=== PATIENT | female | born 1995 | race Hispanic/Latino ===

== ENCOUNTER 2021-10-14 00:06 | Inpatient (IN) | payer OTHER ==
[2021-10-14] MEDS ORDERED: CARBOPROST TROMETHAMINE 250 MCG/1 ML INJ IM PRN (00:49)
[2021-10-14] MEDS ORDERED: LIDOCAINE (2%) 20 MG/1 ML VIAL 20 ML MDV INFILTRATI ONE (00:49)
[2021-10-14] MEDS ORDERED: ONDANSETRON 4 MG/2 ML INJ IV PRN ×2 (00:49→14:20)
[2021-10-14] MEDS ORDERED: MINERAL OIL 30 ML ORAL LIQD PO PRN (00:49)
[2021-10-14] MEDS ORDERED: LOPERAMIDE 2 MG CAP PO PRN (00:49)
[2021-10-14] MEDS ORDERED: TERBUTALINE 1 MG/1 ML INJ SUB-Q PRN (00:49)
[2021-10-14] MEDS ORDERED: miSOPROStol 200 MCG TAB PR PRN (00:49)
[2021-10-14] MEDS ORDERED: ACETAMINOPHEN 325 MG TAB PO PRN ×2 (00:49→14:20)
[2021-10-14] MEDS ORDERED: METHYLERGONOVINE MALEATE 0.2 MG/ML VIAL IM PRN (00:49)
[2021-10-14] MEDS ORDERED: BUTORPHANOL 2 MG/1 ML INJ IV PRN (00:49)
[2021-10-14] MEDS ORDERED: ePHEDrine SULFATE 50 MG/1 ML INJ IV PRN ×2 (00:49→02:07)
[2021-10-14] MEDS ORDERED: fentaNYL 100 MCG/2 ML INJ IV PRN (00:49)
[2021-10-14] MEDS ORDERED: OXYTOCIN 10 UNIT/1 ML INJ IM PRN (00:49)
--- NOTE | 2021-10-14 00:58 | History and Physical Report ---
History of Present Illness Date of examination: 10/14/21 Date of admission: 10/14/2021 Chief complaint: contractions History of present illness: Patient is a at 40w0d presenting with contractions. Notes they began at 4 AM yesterday. Currently every minute. Presented to triage yesterday with latent labor, but discharged home as she did not want to be placed on pitocin. +FM. Notes bloody show before arrival. Denies leakage of fluid. Past History Past Medical History: other (Crohn's Disease) Past Surgical History: no surgical history Family/Genetic History: cancer Social history: no significant social history - Obstetrical History Expected Date of Delivery: 10/14/21 Actual Gestation: 40 Week(s) 0 Day(s) : 3 Para: 2 Hx # Term Pregnancies: 2 Number of Pregnancies: 0 Spontaneous Abortions: 0 Induced : 0 Number of Living Children: 2 Medications and Allergies Allergies Allergy/AdvReac Type Severity Reaction Status Date / Time No Known Allergies Allergy Verified 12/02/15 01:19 Home Medications Medication Instructions Recorded Confirmed Last Taken Type Ibuprofen [Motrin 800 MG tab] 800 mg PO Q8HR PRN #30 tablet 12/02/15 Unknown Rx Lidocain2.5%/Prilocai2.5% [Emla] 5 gm TP ONCE PRN #1 tube 12/02/15 Unknown Rx Pnv,Calcium 72/Iron/Folic Acid 1 tab PO DAILY 12/02/15 12/02/15 Unknown History [Pnv Plus Multivit Tab] Review of Systems Genitourinary: vaginal bleeding, contractions - Vital Signs Vital signs: Vital Signs Temp 97.9 F 10/14/21 00:23 Temp Pulse Resp BP Pulse Ox 97.9 F 90 124/84 99 10/14/21 00:23 10/14/21 00:48 10/14/21 00:30 10/14/21 00:48 - Physical Exam Abdomen: Positive: normal appearance, soft, normal bowel sounds. Negative: distention, tenderness - Obstetrical Cervical Dilatation: 6.5 Cervical Effacement Percentage: 90 station: -2 Uterine Contraction Frequency (min): q 1 min Uterine Contraction Pattern: Regular Results Result Diagrams: 10/14/21 00:46 All other labs normal. Assessment and Plan Patient in active labor, admit to L&D GBS negative Desires epidural Type and screen, CBCB, CoVID testing Anticipate - Patient Problems (1) Active labor at term Current Visit: Yes Status: Acute (2) 40 weeks gestation of Current Visit: No Status: Acute
[2021-10-14 01:00] LABS: Hematocrit 39.7 % (30.3-42.9); Hemoglobin 14.1 gm/dl (10.1-14.3); Mean Corpuscular HGB Conc 35 % (30-34); Mean Corpuscular Volume 85 fl (79-97); Platelet Count 186 K/mm3 (140-440); Red Blood Count 4.65 M/mm3 (3.65-5.03); Red Cell Distribution Width 14.9 % (13.2-15.2)
[2021-10-14] MEDS ORDERED: OXYTOCIN DRIP 30 UNITS/500 ML BAG IV SCH ×3 (01:00→14:20)
[2021-10-14] MEDS ORDERED: LACTATED RINGERS 1,000 ML IV SCH (01:00)
--- NOTE | 2021-10-14 02:06 | Anesthesia Consultation ---
Anesthesia Consult and Med Hx Date of service: 10/14/21 - Airway Anesthetic Teeth Evaluation: Good ROM Head & Neck: Adequate Mental/Hyoid Distance: Adequate Mallampati Class: Class II Intubation Access Assessment: Good - Pulmonary Exam CTA: Yes - Cardiac Exam Cardiac Exam: RRR - Pre-Operative Health Status ASA Pre-Surgery Classification: ASA2 Proposed Anesthetic Plan: Epidural - Pulmonary Hx Asthma: No COPD: No Hx Pneumonia: No - Cardiovascular System Hx Hypertension: No - Central Nervous System Hx Seizures: No Hx Psychiatric Problems: No - Endocrine Hx Renal Disease: No Hx End Stage Renal Disease: No Hx Hypothyroidism: No Hx Hyperthyroidism: No - Hematic Hx Anemia: No Hx Sickle Cell Disease: No - Other Systems Hx Alcohol Use: No
[2021-10-14] MEDS ORDERED: NALOXONE 0.4 MG/1 ML INJ IV PRN (02:07)
--- NOTE | 2021-10-14 02:08 | Progress Note ---
Labor Epidural - Labor Epidural Start Time: 01:53 Stop Time: :57 Performed by:: MEGHANN PIERRE Procedure: Patient is requesting epidural for labor and pain. H&P, labs were reviewed. Patient IDed, all questions and concerns were answered, and consent was signed. Timeout was performed at bedside. Patient in sitting position. Sterile prep and drape was performed. 3ml of 1% lidocaine skin wheal at L[3]- L [4]. 17- gauge Tuohy epidural needle was advanced to loss of resistance with air technique cm. Negative CSF negative blood. Epidural catheter advanced to [15] centimeters. [negative] Aspiration [negative] test dose. Sterile dressing applied. Patient tolerated procedure.
[2021-10-14] MEDS: fentaNYL-BUPIV 2 MCG/ML-0.125% 200 MCG/100 ML BAG EPIDURAL SCH ×2 (02:33→10:44)
--- NOTE | 2021-10-14 07:38 | Progress Note ---
Assessment and Plan A: 25 y.o. @ 40 wks, active labor. - Patient Problems (1) Active labor at term Current Visit: Yes Status: Acute Plan to address problem: Will start Pitocin per protocol. Continue to monitor status through EFM. Anticipate . Subjective - Subjective Date of service: 10/14/21 Principal diagnosis: IUP @ 40 wks, active labor Patient reports: movement normal Objective - Vital Signs Vital Signs: Vital Signs - 12hr 10/14/21 10/14/21 10/14/21 00:23 00:28 00:30 Temperature 97.9 F Pulse Rate 98 H Blood Pressure 124/84 O2 Sat by Pulse 89 Oximetry O2 Sat by Pulse Oximetry [ Throughout] 10/14/21 10/14/21 10/14/21 00:33 00:38 00:43 Temperature Pulse Rate 95 H 82 94 H Blood Pressure O2 Sat by Pulse 99 99 100 Oximetry O2 Sat by Pulse Oximetry [ Throughout] 10/14/21 10/14/21 10/14/21 00:48 01:00 01:34 Temperature Pulse Rate 90 81 Blood Pressure O2 Sat by Pulse 99 98 Oximetry O2 Sat by Pulse 99 Oximetry [ Throughout] 10/14/21 10/14/21 10/14/21 01:35 01:39 01:40 Temperature Pulse Rate 66 81 62 Blood Pressure O2 Sat by Pulse 94 98 86 Oximetry O2 Sat by Pulse Oximetry [ Throughout] 10/14/21 10/14/21 10/14/21 01:44 01:48 01:49 Temperature Pulse Rate 94 H 80 107 H Blood Pressure O2 Sat by Pulse 99 89 98 Oximetry O2 Sat by Pulse Oximetry [ Throughout] 10/14/21 10/14/21 10/14/21 01:54 01:59 02:01 Temperature Pulse Rate 93 H 99 H 76 Blood Pressure 134/78 O2 Sat by Pulse 99 98 Oximetry O2 Sat by Pulse Oximetry [ Throughout] 10/14/21 10/14/21 10/14/21 02:04 02:09 02:12 Temperature Pulse Rate 82 87 92 H Blood Pressure 112/59 O2 Sat by Pulse 99 98 Oximetry O2 Sat by Pulse Oximetry [ Throughout] 10/14/21 10/14/21 10/14/21 02:14 02:19 02:22 Temperature Pulse Rate 101 H 82 86 Blood Pressure 113/68 O2 Sat by Pulse 98 97 Oximetry O2 Sat by Pulse Oximetry [ Throughout] 10/14/21 10/14/21 10/14/21 02:24 02:29 02:31 Temperature Pulse Rate 95 H 96 H 93 H Blood Pressure 107/66 O2 Sat by Pulse 98 98 Oximetry O2 Sat by Pulse Oximetry [ Throughout] 10/14/21 10/14/21 10/14/21 02:34 02:39 02:44 Temperature Pulse Rate 80 90 94 H Blood Pressure O2 Sat by Pulse 97 98 98 Oximetry O2 Sat by Pulse Oximetry [ Throughout] 10/14/21 10/14/21 10/14/21 02:49 02:52 02:54 Temperature Pulse Rate 85 81 82 Blood Pressure 103/65 O2 Sat by Pulse 98 97 Oximetry O2 Sat by Pulse Oximetry [ Throughout] 10/14/21 10/14/21 10/14/21 02:59 03:04 03:09 Temperature Pulse Rate 89 90 88 Blood Pressure O2 Sat by Pulse 98 98 98 Oximetry O2 Sat by Pulse Oximetry [ Throughout] 10/14/21 10/14/21 10/14/21 03:13 03:14 03:19 Temperature Pulse Rate 98 H 94 H 85 Blood Pressure 103/66 O2 Sat by Pulse 98 98 Oximetry O2 Sat by Pulse Oximetry [ Throughout] 10/14/21 10/14/21 10/14/21 03:24 03:29 03:33 Temperature Pulse Rate 82 83 93 H Blood Pressure 110/59 O2 Sat by Pulse 98 98 Oximetry O2 Sat by Pulse Oximetry [ Throughout] 10/14/21 10/14/21 10/14/21 03:34 03:39 03:44 Temperature Pulse Rate 102 H 90 88 Blood Pressure O2 Sat by Pulse 98 98 98 Oximetry O2 Sat by Pulse Oximetry [ Throughout] 10/14/21 10/14/21 10/14/21 03:49 03:53 03:54 Temperature Pulse Rate 86 80 81 Blood Pressure 100/57 O2 Sat by Pulse 97 98 Oximetry O2 Sat by Pulse Oximetry [ Throughout] 10/14/21 10/14/21 10/14/21 03:59 04:04 04:09 Temperature Pulse Rate 74 75 73 Blood Pressure O2 Sat by Pulse 98 97 98 Oximetry O2 Sat by Pulse Oximetry [ Throughout] 10/14/21 10/14/21 10/14/21 04:14 04:19 04:24 Temperature Pulse Rate 93 H 89 86 Blood Pressure 102/54 O2 Sat by Pulse 98 97 98 Oximetry O2 Sat by Pulse Oximetry [ Throughout] 10/14/21 10/14/21 10/14/21 04:29 04:34 04:39 Temperature Pulse Rate 82 90 84 Blood Pressure 100/63 O2 Sat by Pulse 97 97 97 Oximetry O2 Sat by Pulse Oximetry [ Throughout] 10/14/21 10/14/21 10/14/21 04:44 04:49 04:54 Temperature Pulse Rate 79 85 87 Blood Pressure O2 Sat by Pulse 98 97 97 Oximetry O2 Sat by Pulse Oximetry [ Throughout] 10/14/21 10/14/21 10/14/21 04:59 05:04 05:09 Temperature Pulse Rate 76 82 79 Blood Pressure O2 Sat by Pulse 98 98 99 Oximetry O2 Sat by Pulse Oximetry [ Throughout] 10/14/21 10/14/21 10/14/21 05:13 05:14 05:19 Temperature Pulse Rate 88 76 88 Blood Pressure 109/59 O2 Sat by Pulse 99 99 Oximetry O2 Sat by Pulse Oximetry [ Throughout] 10/14/21 10/14/21 10/14/21 05:24 05:29 05:34 Temperature Pulse Rate 84 77 66 Blood Pressure O2 Sat by Pulse 99 99 99 Oximetry O2 Sat by Pulse Oximetry [ Throughout] 10/14/21 10/14/21 10/14/21 05:35 05:39 05:44 Temperature Pulse Rate 75 77 83 Blood Pressure 112/65 O2 Sat by Pulse 99 98 Oximetry O2 Sat by Pulse Oximetry [ Throughout] 10/14/21 10/14/21 10/14/21 05:49 05:54 05:59 Temperature Pulse Rate 78 73 78 Blood Pressure O2 Sat by Pulse 99 100 100 Oximetry O2 Sat by Pulse Oximetry [ Throughout] 10/14/21 10/14/21 10/14/21 06:04 06:09 06:13 Temperature Pulse Rate 84 89 90 Blood Pressure 119/71 O2 Sat by Pulse 100 95 Oximetry O2 Sat by Pulse Oximetry [ Throughout] 10/14/21 10/14/21 10/14/21 06:14 06:19 06:24 Temperature Pulse Rate 77 80 92 H Blood Pressure O2 Sat by Pulse 100 100 100 Oximetry O2 Sat by Pulse Oximetry [ Throughout] 10/14/21 10/14/21 10/14/21 06:29 06:34 06:39 Temperature 97.9 F Pulse Rate 97 H 78 79 Blood Pressure O2 Sat by Pulse 100 100 100 Oximetry O2 Sat by Pulse Oximetry [ Throughout] 10/14/21 10/14/21 10/14/21 06:44 06:49 06:53 Temperature Pulse Rate 91 H 83 88 Blood Pressure 116/73 O2 Sat by Pulse 98 100 Oximetry O2 Sat by Pulse Oximetry [ Throughout] 10/14/21 10/14/21 10/14/21 06:54 06:59 07:04 Temperature Pulse Rate 74 91 H 83 Blood Pressure O2 Sat by Pulse 98 90 100 Oximetry O2 Sat by Pulse Oximetry [ Throughout] 10/14/21 10/14/21 10/14/21 07:09 07:14 07:19 Temperature Pulse Rate 81 89 87 Blood Pressure 103/68 O2 Sat by Pulse 100 99 100 Oximetry O2 Sat by Pulse Oximetry [ Throughout] 10/14/21 10/14/21 10/14/21 07:24 07:29 07:34 Temperature Pulse Rate 84 77 84 Blood Pressure 123/79 O2 Sat by Pulse 100 99 98 Oximetry O2 Sat by Pulse Oximetry [ Throughout] - Exam Narrative Exam: AROM clear fluid. Cardiovascular: Regular rate Lungs: Normal air movement Abdomen: Present: normal appearance, soft Vulva: both: normal Uterus: Present: normal FHR: category 1 Uterine Contraction Monitor Mode: External Cervical Dilatation: 8 Cervical Effacement Percentage: 90 station: -1 Uterine Contraction Pattern: Regular Uterine Tone Measurement Phase: Resting Uterine Contraction Intensity: Moderate Extremities: normal - Labs Labs: Abnormal Labs 10/14/21 00:46 WBC 15.0 H MCHC 35 H Laboratory Results - last 24 hr 10/14/21 10/14/21 10/14/21 00:46 00:46 00:46 WBC 15.0 H RBC 4.65 Hgb 14.1 Hct 39.7 MCV 85 MCH 30 MCHC 35 H RDW 14.9 Plt Count 186 Syphilis IgG/IgM Ab Nonreactive Blood Type O POSITIVE Antibody Screen Negative
--- NOTE | 2021-10-14 09:23 | Event Note ---
Date: 10/14/21 Pt feeling more pressure. Cervical exam 100/0. Category 1 EFM tracing. RN taking care of patient aware. Anticipate .
--- NOTE | 2021-10-14 11:43 | Procedure Note ---
OB Delivery Note - Delivery Date of Delivery: 10/14/21 Estimated blood loss: 200cc - Vaginal Delivery presentation: vertex Delivery position: OA Intrapartum events: none Delivery induction: none Delivery augmentation: rupture of membranes, pitocin Delivery monitor: external FHT, external uterine Route of delivery: Delivery placenta: spontaneous Delivery cord: 3 umbilical vessels Episiotomy: none Delivery laceration: none Anesthesia: epidural Delivery comments: of viable female infant. 1500ml of amniotic fluid noted after delivery of infant. to mother's abdomen for skin to skin. Cord cut and clamped after cessation of pulse. Infant handed to NGUYEN RN for evaluation. Spontaneous delivery of placenta, intact, complete, 3 vessels noted. Perineum and vaginal inspected, no lacerations noted. Blood loss: 200ml. Apgars 8,9. Infant weight 9-5. Instruments and sponges counted with RN X2 and correct X2. Infant and mother left in stable condition in the care of the RN. - Infant A at 1 minute: 8 at 5 minutes: 9 Gender: Female (9-5)
[2021-10-14] MEDS ORDERED: BENZOCAINE/MENTHOL 20/0.5% TOP SPRAY 56 GM TP PRN (14:20)
[2021-10-14] MEDS ORDERED: WITCH HAZEL/ GLYCERIN PAD TP PRN (14:20)
[2021-10-14] MEDS ORDERED: miSOPROStol 100 MCG TAB PR PRN (14:20)
[2021-10-14] MEDS ORDERED: PROMETHAZINE 25 MG TAB PO PRN (14:20)
[2021-10-14] MEDS ORDERED: diphenhydrAMINE 25 MG CAP PO PRN (14:20)
[2021-10-14] MEDS ORDERED: PROMETHAZINE 25 MG RECT SUPP PR PRN (14:20)
[2021-10-14] MEDS ORDERED: LANOLIN/ZINC/DIMETHICONE (LANSINOH) 7 GM TP PRN ×2 (14:20)
[2021-10-14] MEDS ORDERED: MAGNESIUM HYDROXIDE (MOM) ORAL LIQD UDC PO PRN (14:20)
[2021-10-14] MEDS ORDERED: oxyCODONE /ACETAMINOPHEN 5-325MG TAB PO PRN (14:20)
[2021-10-14] MEDS: IBUPROFEN 800 MG TAB PO SCH ×2 (18:15→20:20)
[2021-10-14] MEDS: DOCUSATE SODIUM 100 MG CAP PO SCH (22:00)
[2021-10-15] MEDS: IBUPROFEN 800 MG TAB PO SCH ×2 (02:20→10:12)
--- NOTE | 2021-10-15 03:59 | Post Anesthesia Evaluation ---
- Post Anesthesia Evaluation Patient Participated: No Airway Patent: Yes Stable Respiratory Function: Yes Nausea/Vomiting: No Temp > 96.8F: Yes Pain Manageable: Yes Adequeate Hydration: Yes Anesthesia Complications: No Block Receding Appropriately: Yes Patient on Ventilator: No
[2021-10-15 05:17] LABS: Hematocrit 33.4 % (30.3-42.9); Hemoglobin 11.5 gm/dl (10.1-14.3)
--- NOTE | 2021-10-15 07:45 | Discharge Summary ---
Providers - Providers Date of Admission: 10/14/21 00:49 Date of discharge: 10/15/21 (desires d/c home) Attending physician: DINH BAEZ MD 10/14/21 14:20 Consult to Filler Blender [CONS] Routine Reason For Exam: assistance with , SNS Primary care physician: DINH BAEZ MD Hospitalization Reason for admission: Delivery Condition: Good Pertinent studies: post delivery H&H 11.5/33.4 Procedures: Hospital course: uncomplicated and course Disposition: 01 HOME / SELF CARE / HOMELESS Final Discharge Diagnosis (Prints w/discharge instructions): vaginal Time spent for discharge: 15 - Discharge Diagnoses (1) Vaginal delivery Status: Acute Comment: normal delivery done Core Measure Documentation - Palliative Care Palliative Care/ Comfort Measures: Not Applicable - Core Measures Any of the following diagnoses?: none Exam - Constitutional Vitals: Temp Pulse Resp BP Pulse Ox 97.8 F 88 18 115/71 98 10/15/21 00:22 10/15/21 00:22 10/15/21 02:20 10/15/21 00:22 10/15/21 00:22 General appearance: Present: no acute distress, well-nourished - EENT Eyes: Present: PERRL ENT: hearing intact, clear oral mucosa - Neck Neck: Present: supple, normal ROM - Respiratory Respiratory effort: normal Respiratory: bilateral: CTA - Cardiovascular Rhythm: regular Heart Sounds: Absent: rub, click - Extremities Extremities: No edema Peripheral Pulses: within normal limits - Abdominal General gastrointestinal: Present: soft, non-tender, non-distended, normal bowel sounds Female genitourinary: Present: normal - Integumentary Integumentary: Present: clear, warm, dry - Musculoskeletal Musculoskeletal: gait normal, strength equal bilaterally - Psychiatric Psychiatric: appropriate mood/affect, intact judgment & insight - Neurologic Neurologic: CNII-XII intact, moves all extremities - Additional findings Additional findings: Lochia scant, fundus firm Plan Activity: no restrictions Diet: regular Follow up with: DINH BAEZ MD [Primary Care Provider] - 6 Weeks (Congratulations! Please call [phone] to schedule your visit in 6 weeks. Call for any questions or concerns. )
[2021-10-15 09:28] VITALS: BP 117/70
[2021-10-15] MEDS ORDERED: PRENATAL VIT27-FE FUMARATE-FOLIC ACID VIT TAB PO SCH (10:00)
[2021-10-15] MEDS: DOCUSATE SODIUM 100 MG CAP PO SCH (10:12)
[2021-10-15] MEDS ORDERED: TETANUS,DIPH,PERTUSS(ACELL) VACCINE 0.5 ML SYRINGE IM ONE (12:01)
== END 2021-10-15 14:50 | disposition home or self-care (01) | DRG 775 ==
LOC: TRG 00:06 → APU 00:07 → LD 00:49 → TRG 01:10 → OB 13:55
PROVIDERS: ADMIT Student in an Organized Health Care Education/Training Program; ATTEND Student in an Organized Health Care Education/Training Program
PROC: 10E0XZZ Delivery of Products of Conception, External Approach (ICD-10-PCS; principal; 2021-10-14)
PROC: 3E0R3BZ Introduction of Anesthetic Agent into Spinal Canal, Percutaneous Approach (ICD-10-PCS; 2021-10-14)
PROC: 00HU33Z Insertion of Infusion Device into Spinal Canal, Percutaneous Approach (ICD-10-PCS; 2021-10-14)
PROC: 3E0234Z Introduction of Serum, Toxoid and Vaccine into Muscle, Percutaneous Approach (ICD-10-PCS; 2021-10-15)
DX: O99.62 Diseases of the digestive system complicating childbirth (principal); Z3A.40 40 weeks gestation of pregnancy; Z20.822 Contact with and (suspected) exposure to COVID-19; Z23 Encounter for immunization; Z37.0 Single live birth; K50.90 Crohn's disease, unspecified, without complications
CPT/HCPCS: 36415; 59025; 85014; 85018; 85027; 86592; 86850; 86900; 86901; G0378; J3490; J0595; J7120; U0003